=== PATIENT | male | born 1990 | race Caucasian/White ===

== ENCOUNTER 2025-05-08 13:28 | Outpatient (CLI) | payer BC, SELFPAY ==
--- NOTE | ~2025-05-08 | XR_ITS ---
XR lumbar spine 6V w bending 05/08/2025 14:08 Indication: Chronic bilateral low back pain Procedure: 7 views lumbar spine Comparison: No prior studies for comparison. Findings: There is mild levocurvature of the lumbar spine. Vertebral body heights are maintained. No fracture, subluxation or dislocation. There is mild disc narrowing at L5-S1. No evidence for spondylolisthesis. Sacral foramen are symmetric. Impression: 1: Mild lumbar spondylosis. Reviewed, dictated and finalized at location O. Impression: 1: Mild lumbar spondylosis.
== END 2025-05-08 13:29 | disposition home or self-care (01) ==
LOC: ANHIMG 13:31
PROVIDERS: Visit Provider Nurse Practitioner Family
DX: M47.896 Other spondylosis, lumbar region (principal)
CPT/HCPCS: 72114